=== PATIENT | female | born 1960 | race Caucasian/White ===

== ENCOUNTER 2021-03-19 09:56 | Observation (INO) | payer BC, OTHER ==
[~2021-03-19] VITALS: Ht 160 cm; Wt 61.2 kg
[2021-03-19] MEDS: SODIUM CHLORIDE 0.9% 1,000 ML IV SCH ×2 (10:30→16:46)
[2021-03-19] MEDS ORDERED: CEFAZOLIN PMX 1GM/50ML 50 ML IVPB ONE (10:30)
[2021-03-19 10:31] VITALS: BP 135/76
[2021-03-19 10:42] LABS: BASOPHILS % (AUTO) 1 % (0-1); EOSINOPHILS % (AUTO) 2 % (1-7); LYMPHOCYTES % (AUTO) 40 % (22-44); MEAN CORPUSCULAR HEMOGLOBIN 29.8 pg (27.0-34.8); MEAN PLATELET VOLUME 7.3 fL (7.4-10.4); MONOCYTES % (AUTO) 6 % (2-9); NEUTROPHILS % (AUTO) 51 % (42-75); PLATELET COUNT 209 x10^3/uL (130-400); RED BLOOD COUNT 4.49 x10^6/uL (3.82-5.3); RED CELL DISTRIBUTION WIDTH 13.5 % (9.6-15.2)
[2021-03-19 10:43] LABS: MD NO
[2021-03-19] MEDS ORDERED: RIZA10TA20 PO (10:43)
[2021-03-19] MEDS ORDERED: LAMO100T5 PO (10:43)
[2021-03-19] MEDS ORDERED: METO25TA91 PO (10:43)
[2021-03-19] MEDS ORDERED: ALBU8.5H8 INH (10:43)
[2021-03-19] MEDS ORDERED: ESCI5TAB8 PO (10:43)
[2021-03-19] MEDS ORDERED: GALC120P IM (10:43)
[2021-03-19] MEDS ORDERED: ASPI81TA45 PO (10:43)
[2021-03-19 10:53] LABS: ANION GAP 5 mmol/L (5-15); CALCIUM 8.6 mg/dL (8.5-10.1); CHLORIDE 110 mmol/L (98-107)
[2021-03-19 10:55] LABS: CREATININE 0.74 mg/dL (0.55-1.02)
[2021-03-19] MEDS ORDERED: CEFAZOLIN PMX 1GM/50ML 50 ML ONE (12:59)
[2021-03-19] MEDS ORDERED: FENTANYL PF 100 MCG/2ML ONE ×2 (12:59→13:37)
[2021-03-19] MEDS ORDERED: MIDAZOLAM 1 MG/ML, 5ML ONE (12:59)
[2021-03-19] MEDS ORDERED: LIDOCAINE 2%, 20ML ONE (13:00)
[2021-03-19] MEDS ORDERED: CEFAZOLIN 1,000 MG ONE (13:00)
[2021-03-19] MEDS ORDERED: MIDAZOLAM 1 MG/ML, 2ML ONE (13:37)
[2021-03-19] MEDS ORDERED: DIPHENHYDRAMINE 50 MG/ML, 1ML ONE (13:46)
[2021-03-19] MEDS: HYDROcodone/APAP 5/325 TABLET PO PRN ×3 (15:22→19:25)
[2021-03-19] MEDS ORDERED: ZOLPIDEM 5MG TABLET PO PRN (15:30)
[2021-03-19] MEDS ORDERED: ACETAMINOPHEN 325 MG TABLET PO PRN (15:30)
[2021-03-19] MEDS ORDERED: HOLD MEDICATION MC PRN (15:30)
[2021-03-19] MEDS ORDERED: ONDANSETRON 2MG/ML, 2ML IV PRN (15:30)
[2021-03-19 20:00] VITALS: BP 126/85
[2021-03-19] MEDS: SODIUM CHLORIDE FLUSH 10ML SYR IVF SCH (21:14)
[2021-03-19] MEDS: CEFAZOLIN PMX 1GM/50ML 50 ML IVPB SCH (23:21)
[2021-03-20 00:30] VITALS: BP 136/79
[2021-03-20] MEDS: HYDROcodone/APAP 5/325 TABLET PO PRN ×4 (00:30→13:16)
[2021-03-20] MEDS: CEFAZOLIN PMX 1GM/50ML 50 ML IVPB SCH (06:31)
[2021-03-20 08:55] VITALS: BP 133/86
[2021-03-20] MEDS: SODIUM CHLORIDE FLUSH 10ML SYR IVF SCH (09:00)
[2021-03-20 12:25] VITALS: BP 124/80
[2021-03-20] MEDS ORDERED: HYDR-2214 PO (12:43)
== END 2021-03-20 13:40 | disposition home or self-care (01) ==
LOC: CACL 09:56 → 5SO 14:40 → CACL 19:06
PROVIDERS: ADMIT Internal Medicine Cardiovascular Disease; ATTEND Internal Medicine Cardiovascular Disease
DX: I49.5 Sick sinus syndrome (principal); I47.1 Supraventricular tachycardia; E78.5 Hyperlipidemia, unspecified; E78.00 Pure hypercholesterolemia, unspecified; J45.909 Unspecified asthma, uncomplicated; F17.210 Nicotine dependence, cigarettes, uncomplicated; Z79.82 Long term (current) use of aspirin; Z79.899 Other long term (current) drug therapy
CPT/HCPCS: 33208; 36415; 71045; 71046; 80048; 85025; 96365; 96366; 99156; 99157; C1779; C1785; C1892; G0378; J0690; J1200; J2250; J3010; J3490

== ENCOUNTER 2021-03-27 10:17 | Observation (INO) | payer BC ==
[~2021-03-27] VITALS: Ht 165.1 cm; Wt 58.6 kg
[~2021-03-27 10:17] MED LIST: ALBU8.5H8 INH; ASPI81TA45 PO; ESCI5TAB8 PO; GALC120P IM; HYDR-2214 PO; LAMO100T5 PO; METO25TA91 PO; RIZA10TA20 PO
--- NOTE | 2021-03-27 10:30 | NUR ---
THIS IS A 61 YO F SENT FROM CARDIOLOGY OFFICE FOR AFIB RVR S/P PACEMAKER PLACEMENT X1 WEEK AGO. PER PT IS TO HAVE ABLATION TODAY. PIV STARTED, LABS DRAWN. PT CONNECTED TO ALL MONITORING. TACHYCARDIC, OTHER VS WDL. FAMILY AT BEDSIDE. NATASHA.
[2021-03-27] MEDS ORDERED: LORazepam 2 MG/ML, 1ML ONE (10:56)
[2021-03-27 11:00] LABS: BASOPHILS % (AUTO) 1 % (0-1); EOSINOPHILS % (AUTO) 2 % (1-7); LYMPHOCYTES % (AUTO) 34 % (22-44); MEAN CORPUSCULAR HEMOGLOBIN 29.4 pg (27.0-34.8); MEAN CORPUSCULAR HGB CONC 33.6 g/dL (32.4-35.8); MONOCYTES % (AUTO) 6 % (2-9); NEUTROPHILS % (AUTO) 58 % (42-75); PLATELET COUNT 194 x10^3/uL (130-400); RED BLOOD COUNT 4.91 x10^6/uL (3.82-5.3); RED CELL DISTRIBUTION WIDTH 13.8 % (9.6-15.2)
[2021-03-27] MEDS ORDERED: SODIUM CHLORIDE 0.9% 1,000ML IVBOLUS ONE (11:00)
[2021-03-27] MEDS ORDERED: LORazepam 2 MG/ML, 1ML IVPush ONE (11:00)
[2021-03-27] MEDS ORDERED: SODIUM CHLORIDE FLUSH 10ML SYR IVF ONE (11:00)
[2021-03-27 11:01] LABS: MD NO
--- NOTE | 2021-03-27 11:02 | NUR ---
PT REQUESTING MEDS FOR ANXIETY. NOTIFIED. NEW ORDERS RECIEVED. PT AMBULATORY W/ A STEADY GAIT TO BR PRIOR TO COMPENSATION DIRECTOR. RETURNED TO ROOM W/O INCIDNET. MEDICATED PER EMAR. CONNECTED TO ALL MONITORING. RESP EVEN AND UNLABORED, NATASHA.
[2021-03-27 11:16] LABS: ALBUMIN 4.2 g/dL (3.4-5.0); ANION GAP 5 mmol/L (5-15); CHLORIDE 109 mmol/L (98-107)
[2021-03-27 11:20] LABS: ALANINE AMINOTRANSFERASE 26 U/L (12-78); ALKALINE PHOSPHATASE 50 U/L (45-117); BILIRUBIN,TOTAL 0.5 mg/dL (0.2-1.0); CREATININE 0.77 mg/dL (0.55-1.02); TOTAL PROTEIN 7.5 g/dL (6.4-8.2)
--- NOTE | 2021-03-27 11:21 | NUR ---
Note tamy in EDM - 03/27/21 at 1122 by SOFIYA PER KIM CHERY, PT IS CLEARED FOR DC. PT VERBALIZED UNDERSTANDING OF DC INSTRUCTIONS, PROVIDED W/ BUS PASS. RESP EVEN AND UNLABORED, NADN. AMBULATORY W/ A STEADY GAIT.
--- NOTE | 2021-03-27 11:28 | NUR ---
RAPID COVID SWAB OBTAINED AND WALKED TO LAB.
--- NOTE | 2021-03-27 11:52 | NUR ---
REPORT TO TRUMAN ZHAO. PT RESTING ON Button W/ CALL LIGHT IN REACH AND SIDE RAILS UPX2. RESP EVEN AND UNLABORED, NATASHA.
[2021-03-27] MEDS: SODIUM CHLORIDE 0.9% 1,000 ML IV SCH ×2 (12:30→21:37)
[2021-03-27] MEDS ORDERED: POLYETHYLENE GLYCOL 17 GM PACKET PO PRN (12:30)
[2021-03-27] MEDS ORDERED: ACETAMINOPHEN 325 MG TABLET PO PRN ×3 (12:30→18:30)
[2021-03-27] MEDS ORDERED: DOCUSATE 100 MG CAPSULE PO PRN (12:30)
[2021-03-27] MEDS ORDERED: HYDROcodone/APAP 5/325 TABLET PO PRN (12:30)
[2021-03-27] MEDS ORDERED: ONDANSETRON 2MG/ML, 2ML IVPush PRN ×3 (12:30→18:30)
[2021-03-27 12:31] VITALS: BP 133/88
[2021-03-27 13:05] LABS: TROPONIN I < 0.015 ng/mL (0.000-0.045)
[2021-03-27 14:15] VITALS: BP 124/82
[2021-03-27] MEDS ORDERED: ZOLPIDEM 5MG TABLET PO PRN (15:00)
[2021-03-27] MEDS ORDERED: SODIUM CHLORIDE 0.9% 1,000 ML IV SCH (15:00)
[2021-03-27] MEDS ORDERED: MIDAZOLAM 1 MG/ML, 2ML ONE (15:12)
[2021-03-27] MEDS ORDERED: FENTANYL PF 100 MCG/2ML ONE ×2 (15:12→18:49)
[2021-03-27] MEDS ORDERED: hydrALAzine 20 MG/ML, 1ML IV PRN (15:30)
[2021-03-27] MEDS ORDERED: SUCCINYLCHOLINE 20 MG/ML, 10ML ONE ×2 (15:30→16:10)
[2021-03-27] MEDS ORDERED: GLYCOPYRROLATE 0.2MG/1ML, 5ML ONE (15:30)
[2021-03-27] MEDS ORDERED: DEXAMETHASONE 4 MG/ML, 1ML ONE ×2 (15:30→16:10)
[2021-03-27] MEDS ORDERED: PHENYLEPHRINE 10 MG/ML ONE ×2 (15:30→16:35)
[2021-03-27] MEDS ORDERED: OXYcodone 5 MG/5 ML ORAL.SOL UDC PO PRN (15:30)
[2021-03-27] MEDS ORDERED: LABETALOL 5MG/ML, 20ML IV PRN (15:30)
[2021-03-27] MEDS ORDERED: NEOSTIGMINE 1 MG/ML, 10ML ONE (15:30)
[2021-03-27] MEDS ORDERED: PROPOFOL 10 MG/ML, 20ML ONE ×2 (15:30→16:10)
[2021-03-27] MEDS ORDERED: PROMETHAZINE 25 MG/ML, 1ML IVPush PRN (15:30)
[2021-03-27] MEDS ORDERED: HYDROmorphone 1 MG/ML, 1ML INJ IVPush PRN (15:30)
[2021-03-27] MEDS ORDERED: ROCURONIUM 10 MG/ML,10ML ONE (15:30)
[2021-03-27] MEDS ORDERED: ONDANSETRON 2MG/ML, 2ML ONE ×2 (15:30→16:10)
[2021-03-27] MEDS ORDERED: EPHEDRINE 50 MG/ML, 1ML IVPush PRN (15:30)
[2021-03-27] MEDS ORDERED: FENTANYL PF 100 MCG/2ML IV PRN (15:30)
[2021-03-27] MEDS ORDERED: ROCURONIUM 10MG/ML,5ML ONE ×2 (16:00→16:10)
[2021-03-27] MEDS ORDERED: HEPARIN 1,000 UNITS/ML, 10ML ONE ×2 (16:21)
[2021-03-27] MEDS ORDERED: GALCANEZUMAB GNLM SC SCH (18:30)
[2021-03-27] MEDS ORDERED: PROMETHAZINE 25 MG/ML, 1ML ONE (18:41)
[2021-03-27] MEDS ORDERED: ACETAMINOPHEN 650 MG/20.3 ML UDC ONE (19:03)
[2021-03-27] MEDS ORDERED: OXYcodone 5 MG/5 ML ORAL.SOL UDC ONE (19:03)
[2021-03-27] MEDS ORDERED: APIXABAN 5 MG TABLET ONE (19:08)
[2021-03-27 20:30] VITALS: BP 104/67
[2021-03-27] MEDS: COLCHICINE 0.6 MG CAPSULE PO SCH ×2 (20:57→21:34)
[2021-03-27] MEDS ORDERED: LAMOTRIGINE 100 MG TABLET PO SCH (21:30)
[2021-03-27] MEDS ORDERED: ESCITALOPRAM 10MG TABLET PO SCH (21:30)
[2021-03-27] MEDS: HYDROcodone/APAP 5/325 TABLET PO PRN ×2 (21:35→22:39)
[2021-03-27] MEDS: APIXABAN 5 MG TABLET PO SCH (22:56)
[2021-03-28 00:48] VITALS: BP 104/68
[2021-03-28 05:41] LABS: BASOPHILS % (AUTO) 0 % (0-1); EOSINOPHILS % (AUTO) 0 % (1-7); LYMPHOCYTES % (AUTO) 17 % (22-44); MD NO; MEAN CORPUSCULAR HGB CONC 33.8 g/dL (32.4-35.8); MEAN PLATELET VOLUME 7.6 fL (7.4-10.4); MONOCYTES % (AUTO) 3 % (2-9); NEUTROPHILS % (AUTO) 80 % (42-75); PLATELET COUNT 145 x10^3/uL (130-400); RED BLOOD COUNT 3.77 x10^6/uL (3.82-5.3); RED CELL DISTRIBUTION WIDTH 13.9 % (9.6-15.2)
[2021-03-28] MEDS: HYDROcodone/APAP 5/325 TABLET PO PRN ×2 (05:44→10:40)
[2021-03-28 05:50] LABS: ALBUMIN 3.1 g/dL (3.4-5.0); CALCIUM 7.3 mg/dL (8.5-10.1); CHLORIDE 111 mmol/L (98-107)
[2021-03-28 06:04] LABS: ALANINE AMINOTRANSFERASE 20 U/L (12-78); ALKALINE PHOSPHATASE 32 U/L (45-117); ANION GAP 6 mmol/L (5-15); BILIRUBIN,TOTAL 0.5 mg/dL (0.2-1.0); CHOL/HDL RATIO 2.9; CHOLESTEROL, TOTAL 173 mg/dL (140-239); CREATININE 0.59 mg/dL (0.55-1.02); HDL CHOL % 35 % (28-40); HDL CHOLESTEROL (DIRECT) 60 mg/dL (40-60); LDL CHOLESTEROL,CALCULATED 92 mg/dL (54-169); LDL/HDL RATIO 1.5 (0.5-3.0); TOTAL PROTEIN 5.4 g/dL (6.4-8.2); TRIGLYCERIDES 107 mg/dL (50-200); VLDL CHOLESTEROL 21 mg/dL (0-25)
[2021-03-28] MEDS ORDERED: CALCIUM GLUCONATE 4.6 MEQ in SODIUM CHLORIDE 0.9% 100 ML IV ONE (07:00)
[2021-03-28] MEDS ORDERED: CALCIUM GLUCONATE IV ONE (07:00)
[2021-03-28 07:25] VITALS: BP 106/68
[2021-03-28] MEDS ORDERED: LAMOTRIGINE 100 MG TABLET PO SCH (09:00)
[2021-03-28] MEDS ORDERED: METOPROLOL SUCCINATE 25 MG TAB.ER.24H PO SCH (09:00)
[2021-03-28] MEDS ORDERED: ESCITALOPRAM 10MG TABLET PO SCH (09:00)
[2021-03-28] MEDS ORDERED: RIZATRIPTAN 10MG TABLET PO SCH (09:00)
[2021-03-28] MEDS: COLCHICINE 0.6 MG CAPSULE PO SCH (09:15)
[2021-03-28] MEDS: APIXABAN 5 MG TABLET PO SCH (09:16)
[2021-03-28] MEDS ORDERED: APIX5TAB PO (11:09)
[2021-03-28] MEDS ORDERED: COLC0.6C3 PO (11:09)
== END 2021-03-28 13:04 | disposition home or self-care (01) ==
LOC: SUATTDRO 11:29 → OR 11:41 → INTOOBSV 11:45 → EDIP 11:45 → 5SO 12:25
PROVIDERS: ADMIT Hospitalist; ATTEND Internal Medicine
DX: I48.20 Chronic atrial fibrillation, unspecified (principal); Z20.822 Contact with and (suspected) exposure to COVID-19; I48.0 Paroxysmal atrial fibrillation; I48.3 Typical atrial flutter; I48.4 Atypical atrial flutter; I49.5 Sick sinus syndrome; D68.69 Other thrombophilia; G43.909 Migraine, unspecified, not intractable, without status migrainosus; Z90.710 Acquired absence of both cervix and uterus; Z95.0 Presence of cardiac pacemaker; Z79.899 Other long term (current) drug therapy; Z79.01 Long term (current) use of anticoagulants
CPT/HCPCS: 36415; 71045; 80053; 80061; 84443; 84484; 85025; 85347; 87635; 93005; 93306; 93312; 93321; 93325; 93613; 93655; 93656; 93657; 93662; 96361; 96365; 96375; 99285; C1730; C1732; C1759; C1766; C1893; C1894; G0378; J0330; J0610; J1100; J1644; J2060; J2250; J2370; J2405; J2704; J2710; J3010; J7030